=== PATIENT | male | born 1980 | race Hispanic/Latino ===

== ENCOUNTER 2017-08-17 10:06 | Emergency (ER) | payer SELFPAY ==
[2017-08-17] MEDS ORDERED: KETOROLAC TROMETHAMINE 60 MG/2 ML VIAL ONE (10:40)
== END 2017-08-17 10:58 | disposition home or self-care (01) ==
LOC: EDH 10:06
DX: S82.421A Displaced transverse fracture of shaft of right fibula, initial encounter for closed fracture (principal); S89.91XA Unspecified injury of right lower leg, initial encounter; Z72.0 Tobacco use; W18.39XA Other fall on same level, initial encounter; Y93.89 Activity, other specified; Y92.89 Other specified places as the place of occurrence of the external cause; Y99.8 Other external cause status
CPT/HCPCS: 29515; 73562; 73610; 96372; 99284; J1885

== ENCOUNTER 2019-02-26 13:02 | Emergency (ER) | payer OTHER ==
[2019-02-26] MEDS ORDERED: NAPROXEN 500 MG TABLET ONE (13:51)
[2019-02-26] MEDS ORDERED: LIDOCAINE 5% TOPICAL PATCH TP ONE (13:51)
[2019-02-26 13:55] LABS: APPEARANCE,URINE Clear (CLEAR); BILIRUBIN,URINE Negative (NEGATIVE); COLOR,URINE Yellow (YELLOW); GLUCOSE, URINE (UA) Negative (NEGATIVE); KETONES,URINE Negative (NEGATIVE); LEUKOCYTE ESTERASE ,URINE Negative (NEGATIVE); NITRATE,URINE Negative (NEGATIVE); OCCULT BLOOD,URINE Negative (NEGATIVE); PROTEIN,URINE Negative (NEGATIVE); UROBILINOGEN,URINE 0.2 mg/dL (0.2-1.0)
== END 2019-02-26 14:19 | disposition home or self-care (01) ==
LOC: EDH 13:02
DX: R07.89 Other chest pain (principal); Z72.0 Tobacco use
CPT/HCPCS: 71046; 81003